=== PATIENT | male | born 1990 | race Caucasian/White ===

== ENCOUNTER 2019-03-02 16:10 | Emergency (ER) | payer MEDICAID ==
[~2019-03-02] VITALS: Ht 165.1 cm; Wt 97.5 kg
[2019-03-02 16:15] VITALS: BP 135/91
[2019-03-02 17:18] LABS: APPEARANCE,URINE CLEAR (CLEAR); BILIRUBIN,URINE NEGATIVE (NEGATIVE); BLOOD, URINE NEGATIVE (NEGATIVE); LEUKOCYTE ESTERASE ,URINE NEGATIVE (NEGATIVE); NITRITE, URINE NEGATIVE (NEGATIVE); PH,URINE 7.5 (5.0-9.0); UGLUCOSE NEGATIVE (NEGATIVE)
[2019-03-02 17:20] LABS: COLOR,URINE STRAW (YELLOW)
[2019-03-02 17:30] VITALS: BP 125/79
[2019-03-06 15:21] LABS: CHLAMYDIA TRACHOMATIS AMP DNA Negative (Negative)
== END 2019-03-02 17:30 | disposition home or self-care (01) ==
LOC: MED 16:10
DX: R30.0 Dysuria (principal); H10.9 Unspecified conjunctivitis
CPT/HCPCS: 36415; 81003; 87491; 99283

== ENCOUNTER 2020-05-26 22:26 | Emergency (ER) | payer MEDICAID, OTHER ==
[~2020-05-26] VITALS: Ht 165.1 cm; Wt 90.7 kg
[2020-05-26 22:30] VITALS: BP 142/87
--- NOTE | 2020-05-26 22:40 | NUR ---
PT AMBULATED TO BED 04.
--- NOTE | 2020-05-26 22:43 | NUR ---
29 Y/O M, BROUGHT IN TO ER WITH C/O LOWER BACK PAIN FOR 4 DAYS. REPORTS HAD A FALL AT WORK,05/22/20, SLIPPED AND DID THE "SPLITS" AND STRAINED HIS BACK. DENIES HITTING HEAD. PAIN IS SHARP, DOES NOT RADIATE. DENIES PAST MEDICAL HX. NKA. REPORTS HERE FOR WORKERS COMP CLEARANCE. SITTING AT BEDSIDE, NO SOB.
[2020-05-26 22:45] VITALS: BP 142/87
--- NOTE | 2020-05-26 23:22 | NUR ---
ERMD AT BEDSIDE
[2020-05-26] MEDS ORDERED: IBUPROFEN 600 MG TAB PO ONE (23:30)
--- NOTE | 2020-05-26 23:30 | NUR ---
PT LEFT WITHOUT SIGNING DISCHARGE PAPERWORK.
--- NOTE | 2020-05-26 23:45 | NUR ---
PT CALLED AND NOTIFIED ABOUT SIGNING DISCHARGE PAPERWORK, PRESCRIPTION, AND WORK NOTE. PT CONFIRMED WILL COME BACK TO ER.
== END 2020-05-26 23:58 | disposition home or self-care (01) ==
LOC: MED 22:26
DX: S39.012A Strain of muscle, fascia and tendon of lower back, initial encounter (principal); W01.0XXA Fall on same level from slipping, tripping and stumbling without subsequent striking against object, initial encounter; Y93.89 Activity, other specified; Y92.89 Other specified places as the place of occurrence of the external cause; Y99.8 Other external cause status
CPT/HCPCS: 99282